=== PATIENT | male | born 1965 | race Caucasian/White ===

== ENCOUNTER → 2024-03-03 | Outpatient (CLI) | payer OTHER ==
[~2024-03-03] MED LIST: DOCU100 PO
[2024-03-03 12:53] LABS: BASOPHILS ABSOLUTE AUTO 0.06 K/mm3 (0.00-0.23); BASOPHILS PERCENT AUTO 1 % (0-2); EOSINOPHILS ABSOLUTE AUTO 0.33 K/mm3 (0.00-0.68); EOSINOPHILS PERCENT AUTO 5 % (0-6); Hematocrit 29.4 % (37.0-53.0); Hemoglobin 9.7 g/dL (13.5-17.5); IMMATURE GRAN ABSOLUTE AUTO 0.03 K/mm3 (0.00-0.10); IMMATURE GRAN PERCENT AUTO 0 % (0-1); LYMPHOCYTES ABSOLUTE AUTO 2.15 K/mm3 (0.84-5.20); LYMPHOCYTES PERCENT AUTO 32 % (21-46); MONOCYTES ABSOLUTE AUTO 0.61 K/mm3 (0.16-1.47); MONOCYTES PERCENT AUTO 9 % (4-13); Mean Corpuscular Volume 88 fL (80-100); Mean Platelet Volume 10.4 fL (9.1-12.4); NEUTROPHILS ABSOLUTE AUTO 3.65 K/mm3 (1.96-9.15); NEUTROPHILS PERCENT AUTO 54 % (41-73); Platelet Count 365 K/mm3 (150-400); RDW Coefficient Variation 13.6 % (11.7-14.2); RDW Standard Deviation 43.7 fL (35.1-46.3); Red Blood Cell Count 3.35 M/mm3 (4.30-5.90); White Blood Cell Count 6.83 K/mm3 (4.00-11.30)
[2024-03-03 13:29] LABS: Albumin, Blood 3.1 g/dL (3.4-5.0); Albumin/Globulin Ratio 0.5 (0.8-1.8); Bilirubin, Total 0.5 mg/dL (0.1-1.0); Bun/Creatinine Ratio 20.1 (12.0-20.0); Calcium, Blood 9.3 mg/dL (8.5-10.1); Creatinine, Blood 1.54 mg/dL (0.60-1.20); Globulin, Blood 5.7 g/dL (2.2-4.0); Total Protein, Blood 8.8 g/dL (6.4-8.2)
== END | disposition home or self-care (01) ==
LOC: LAB 12:32 → LAB SHORT 12:32
PROVIDERS: Obstetrics & Gynecology Gynecologic Oncology
DX: M86.171 Other acute osteomyelitis, right ankle and foot (principal)
CPT/HCPCS: 80053; 85025

== ENCOUNTER 2024-03-04 04:36 | Day surgery (SDC) | payer OTHER | END 2024-03-04 23:00 | disposition home or self-care (01) | LOC: WOUND 04:36 | DX: E11.621 Type 2 diabetes mellitus with foot ulcer (principal); L97.515 Non-pressure chronic ulcer of other part of right foot with muscle involvement without evidence of necrosis; L97.422 Non-pressure chronic ulcer of left heel and midfoot with fat layer exposed; L97.522 Non-pressure chronic ulcer of other part of left foot with fat layer exposed; T81.31XD Disruption of external operation (surgical) wound, not elsewhere classified, subsequent encounter; E11.42 Type 2 diabetes mellitus with diabetic polyneuropathy; Z88.8 Allergy status to other drugs, medicaments and biological substances; Z89.421 Acquired absence of other right toe(s); Y83.8 Other surgical procedures as the cause of abnormal reaction of the patient, or of later complication, without mention of misadventure at the time of the procedure | CPT/HCPCS: G0463 ==

== ENCOUNTER 2024-03-07 08:30 | Day surgery (SDC) | payer OTHER | END 2024-03-07 23:00 | disposition home or self-care (01) | LOC: WOUND 08:30 | DX: E11.621 Type 2 diabetes mellitus with foot ulcer (principal); L97.515 Non-pressure chronic ulcer of other part of right foot with muscle involvement without evidence of necrosis; L97.522 Non-pressure chronic ulcer of other part of left foot with fat layer exposed; L97.412 Non-pressure chronic ulcer of right heel and midfoot with fat layer exposed; E11.42 Type 2 diabetes mellitus with diabetic polyneuropathy ==

== ENCOUNTER 2024-03-10 04:34 | Day surgery (SDC) | payer OTHER ==
[2024-03-11] MEDS ORDERED: DOCU100 PO (04:30)
== END 2024-03-12 23:00 | disposition home or self-care (01) ==
LOC: WOUND 04:34
DX: E11.621 Type 2 diabetes mellitus with foot ulcer (principal); L97.513 Non-pressure chronic ulcer of other part of right foot with necrosis of muscle; L97.522 Non-pressure chronic ulcer of other part of left foot with fat layer exposed; L97.412 Non-pressure chronic ulcer of right heel and midfoot with fat layer exposed; L97.422 Non-pressure chronic ulcer of left heel and midfoot with fat layer exposed; E11.42 Type 2 diabetes mellitus with diabetic polyneuropathy; Z89.421 Acquired absence of other right toe(s); K59.00 Constipation, unspecified
CPT/HCPCS: 51702; 51798; 73620; 74177; 80053; 81001; 85025; 96361-59; 96374-59; 96375-59; 99284-25; J2270; J2405; J7030; Q9967

== ENCOUNTER 2024-03-10 17:15 | Emergency (ER) | payer OTHER ==
[~2024-03-10] VITALS: Ht 172.7 cm; Wt 74.8 kg
[2024-03-10 18:12] LABS: BASOPHILS ABSOLUTE AUTO 0.04 K/mm3 (0.00-0.23); BASOPHILS PERCENT AUTO 0 % (0-2); EOSINOPHILS ABSOLUTE AUTO 0.09 K/mm3 (0.00-0.68); EOSINOPHILS PERCENT AUTO 1 % (0-6); Hematocrit 28.6 % (37.0-53.0); Hemoglobin 9.8 g/dL (13.5-17.5); IMMATURE GRAN ABSOLUTE AUTO 0.04 K/mm3 (0.00-0.10); IMMATURE GRAN PERCENT AUTO 0 % (0-1); LYMPHOCYTES ABSOLUTE AUTO 2.14 K/mm3 (0.84-5.20); LYMPHOCYTES PERCENT AUTO 20 % (21-46); MONOCYTES ABSOLUTE AUTO 0.65 K/mm3 (0.16-1.47); MONOCYTES PERCENT AUTO 6 % (4-13); Mean Corpuscular HGB 29.7 pg (26.0-34.0); Mean Corpuscular HGB Conc 34.3 g/dL (31.5-36.5); Mean Corpuscular Volume 87 fL (80-100); Mean Platelet Volume 10.4 fL (9.1-12.4); NEUTROPHILS ABSOLUTE AUTO 7.51 K/mm3 (1.96-9.15); NEUTROPHILS PERCENT AUTO 72 % (41-73); Platelet Count 372 K/mm3 (150-400); RDW Coefficient Variation 13.7 % (11.7-14.2); RDW Standard Deviation 43.2 fL (35.1-46.3); White Blood Cell Count 10.47 K/mm3 (4.00-11.30)
[2024-03-10 18:23] LABS: Albumin, Blood 3.4 g/dL (3.4-5.0); Albumin/Globulin Ratio 0.6 (0.8-1.8); Bilirubin, Total 0.5 mg/dL (0.1-1.0); Bun/Creatinine Ratio 18.6 (12.0-20.0); Calcium, Blood 9.6 mg/dL (8.5-10.1); Creatinine, Blood 1.56 mg/dL (0.60-1.20); Globulin, Blood 5.7 g/dL (2.2-4.0); Potassium, Blood 4.1 mmol/L (3.5-5.5); Total Protein, Blood 9.1 g/dL (6.4-8.2)
[2024-03-10] MEDS ORDERED: NS 1,000 ML IV SCH (23:05)
[2024-03-10] MEDS ORDERED: Morphine Sulfate 4 MG/1 ML Injection IV ONE (23:05)
[2024-03-10] MEDS ORDERED: Ondansetron HCl 2 MG / ML 2ML Vial IV ONE (23:05)
[2024-03-11] MEDS ORDERED: NS 1,000 ML IV SCH (03:20)
[2024-03-11 04:07] LABS: Source, Urine Clean Catch
[2024-03-11 04:12] LABS: Bilirubin, Urine Neg (Neg); Blood, Urine Neg (Neg); Glucose Qualitative, Urine Neg (Neg); Ketones, Urine Neg (Neg); Leukocyte Esterase, Urine Neg (Neg); Nitrite, Urine Neg (Neg); Protein, Urine 2+ (Neg); Urobilinogen, Urine NORM (Normal); pH, Urine 6.5 (5.0-8.0)
[2024-03-11 04:15] LABS: Appearance, Urine Clear (Clear); Color, Urine Yellow (P-Yellow)
[2024-03-11 04:26] LABS: Bacteria Not Seen /hpf; Red Blood Cells, Urine Not Seen /hpf (0-2); Squamous Epithelial Cells Rare /hpf (Few); White Blood Cells, Urine 0-2 /hpf (0-5)
[2024-03-11] MEDS ORDERED: DOCU100 PO (04:30)
== END 2024-03-11 05:13 | disposition home or self-care (01) ==
LOC: ER 17:15
PROVIDERS: Physician Assistant
DX: K59.00 Constipation, unspecified (principal)
CPT/HCPCS: 51702; 51798; 73620; 74177; 80053; 81001; 85025; 96361-59; 96374-59; 96375-59; 99284-25; J2270; J2405; J7030; Q9967

== ENCOUNTER 2024-03-17 03:11 | Day surgery (SDC) | payer OTHER | END 2024-03-17 23:00 | disposition home or self-care (01) | LOC: WOUND 03:11 | DX: E11.621 Type 2 diabetes mellitus with foot ulcer (principal); L97.413 Non-pressure chronic ulcer of right heel and midfoot with necrosis of muscle; L97.422 Non-pressure chronic ulcer of left heel and midfoot with fat layer exposed; L97.522 Non-pressure chronic ulcer of other part of left foot with fat layer exposed; L97.412 Non-pressure chronic ulcer of right heel and midfoot with fat layer exposed; L97.512 Non-pressure chronic ulcer of other part of right foot with fat layer exposed; E11.42 Type 2 diabetes mellitus with diabetic polyneuropathy; Z89.421 Acquired absence of other right toe(s) | CPT/HCPCS: G0463 ==

== ENCOUNTER 2024-03-24 03:09 | Day surgery (SDC) | payer OTHER ==
[2024-03-24] MEDS ORDERED: Lidocaine HCl 4% Cream 5 GM ONE (08:56)
[2024-03-24] MEDS ORDERED: SULFAMETHOXAZO1 EAC1 PO (11:53)
[2024-03-24] MEDS ORDERED: AMOX-CLAV 875-1 EAC5 PO (11:53)
[2024-03-24] MEDS ORDERED: TRAM50 PO (11:53)
[2024-03-24] MEDS ORDERED: Levemir FlexPen 100 (11:54)
[2024-03-24] MEDS ORDERED: SUBOXONE 2 MG-1 EAC1 SL (11:55)
[2024-03-24] MEDS ORDERED: ONDA4ODT MM (11:57)
[2024-03-24] MEDS ORDERED: AMLO5 PO (11:57)
[2024-03-24] MEDS ORDERED: AMOCLA875 PO (13:12)
[2024-03-24] MEDS ORDERED: INSDET100 SC (18:40)
[2024-03-26] MEDS ORDERED: TAMS.4ER PO (15:44)
[2024-03-26] MEDS ORDERED: MIRALAX17 GM PO (15:44)
[2024-03-26] MEDS ORDERED: VISBIOME 112.51 EACH PO (15:46)
== END 2024-03-24 23:00 | disposition home or self-care (01) ==
LOC: WOUND 03:09
DX: E11.621 Type 2 diabetes mellitus with foot ulcer (principal); E11.42 Type 2 diabetes mellitus with diabetic polyneuropathy; L97.515 Non-pressure chronic ulcer of other part of right foot with muscle involvement without evidence of necrosis; L97.422 Non-pressure chronic ulcer of left heel and midfoot with fat layer exposed; L97.522 Non-pressure chronic ulcer of other part of left foot with fat layer exposed; I10 Essential (primary) hypertension; T81.31XD Disruption of external operation (surgical) wound, not elsewhere classified, subsequent encounter; Z89.421 Acquired absence of other right toe(s); Z45.2 Encounter for adjustment and management of vascular access device; Z88.6 Allergy status to analgesic agent; Z79.899 Other long term (current) drug therapy; Z89.431 Acquired absence of right foot
CPT/HCPCS: 36592; 80053; 85025; 86140; A6196; A9270; G0463

== ENCOUNTER 2024-03-24 08:36 | Day surgery (SDC) | payer OTHER ==
[2024-03-24 10:34] VITALS: BP 128/82
[2024-03-24 11:30] LABS: BASOPHILS ABSOLUTE AUTO 0.07 K/mm3 (0.00-0.23); BASOPHILS PERCENT AUTO 1 % (0-2); EOSINOPHILS ABSOLUTE AUTO 0.16 K/mm3 (0.00-0.68); EOSINOPHILS PERCENT AUTO 2 % (0-6); Hematocrit 30.7 % (37.0-53.0); Hemoglobin 10.5 g/dL (13.5-17.5); IMMATURE GRAN ABSOLUTE AUTO 0.03 K/mm3 (0.00-0.10); IMMATURE GRAN PERCENT AUTO 0 % (0-1); LYMPHOCYTES ABSOLUTE AUTO 2.35 K/mm3 (0.84-5.20); LYMPHOCYTES PERCENT AUTO 25 % (21-46); MONOCYTES ABSOLUTE AUTO 0.54 K/mm3 (0.16-1.47); MONOCYTES PERCENT AUTO 6 % (4-13); Mean Corpuscular HGB 29.8 pg (26.0-34.0); Mean Corpuscular HGB Conc 34.2 g/dL (31.5-36.5); Mean Corpuscular Volume 87 fL (80-100); Mean Platelet Volume 10.8 fL (9.1-12.4); NEUTROPHILS ABSOLUTE AUTO 6.39 K/mm3 (1.96-9.15); NEUTROPHILS PERCENT AUTO 67 % (41-73); Platelet Count 323 K/mm3 (150-400); RDW Coefficient Variation 13.5 % (11.7-14.2); RDW Standard Deviation 42.9 fL (35.1-46.3); Red Blood Cell Count 3.52 M/mm3 (4.30-5.90); White Blood Cell Count 9.54 K/mm3 (4.00-11.30)
[2024-03-24] MEDS ORDERED: TRAM50 PO (11:53)
[2024-03-24] MEDS ORDERED: SULFAMETHOXAZO1 EAC1 PO (11:53)
[2024-03-24] MEDS ORDERED: AMOX-CLAV 875-1 EAC5 PO (11:53)
[2024-03-24] MEDS ORDERED: Levemir FlexPen 100 (11:54)
[2024-03-24] MEDS ORDERED: SUBOXONE 2 MG-1 EAC1 SL (11:55)
[2024-03-24 11:56] LABS: Albumin, Blood 3.9 g/dL (3.4-5.0); Albumin/Globulin Ratio 0.7 (0.8-1.8); Bilirubin, Total 0.5 mg/dL (0.1-1.0); Bun/Creatinine Ratio 18.8 (12.0-20.0); C-REACTIVE PROTEIN, EXT RANGE 0.494 mg/dL (0.000-0.300); Calcium, Blood 10.1 mg/dL (8.5-10.1); Creatinine, Blood 2.39 mg/dL (0.60-1.20); Globulin, Blood 5.8 g/dL (2.2-4.0); Potassium, Blood 5.6 mmol/L (3.5-5.5); Total Protein, Blood 9.7 g/dL (6.4-8.2)
[2024-03-24] MEDS ORDERED: ONDA4ODT MM (11:57)
[2024-03-24] MEDS ORDERED: AMLO5 PO (11:57)
--- NOTE | 2024-03-24 12:11 | NUR ---
Lab results drawn this morning faxed to Dr. Marv Arguelles's office at [facility].
[2024-03-24] MEDS ORDERED: AMOCLA875 PO (13:12)
[2024-03-24] MEDS ORDERED: INSDET100 SC (18:40)
== END 2024-03-24 10:50 | disposition home or self-care (01) ==
LOC: ATC 08:36
DX: Z45.2 Encounter for adjustment and management of vascular access device (principal); I10 Essential (primary) hypertension; E11.621 Type 2 diabetes mellitus with foot ulcer; L97.529 Non-pressure chronic ulcer of other part of left foot with unspecified severity; Z88.6 Allergy status to analgesic agent; Z79.899 Other long term (current) drug therapy; Z89.431 Acquired absence of right foot
CPT/HCPCS: 36592; 80053; 85025; 86140

== ENCOUNTER 2024-03-24 11:46 | Inpatient (IN) | payer OTHER ==
[~2024-03-24] VITALS: Ht 172.7 cm; Wt 71.2 kg
[2024-03-24] MEDS ORDERED: AMOX-CLAV 875-1 EAC5 PO (11:53)
[2024-03-24] MEDS ORDERED: TRAM50 PO ×2 (11:53)
[2024-03-24] MEDS ORDERED: SULFAMETHOXAZO1 EAC1 PO ×2 (11:53)
[2024-03-24] MEDS ORDERED: Levemir FlexPen 100 (11:54)
[2024-03-24] MEDS ORDERED: SUBOXONE 2 MG-1 EAC1 SL ×2 (11:55)
[2024-03-24] MEDS ORDERED: AMLO5 PO (11:57)
[2024-03-24] MEDS ORDERED: ONDA4ODT MM (11:57)
[2024-03-24] MEDS ORDERED: AMOCLA875 PO (13:12)
[2024-03-24 14:09] LABS: BASOPHILS ABSOLUTE AUTO 0.06 K/mm3 (0.00-0.23); BASOPHILS PERCENT AUTO 1 % (0-2); EOSINOPHILS ABSOLUTE AUTO 0.07 K/mm3 (0.00-0.68); EOSINOPHILS PERCENT AUTO 1 % (0-6); Hematocrit 31.5 % (37.0-53.0); Hemoglobin 10.7 g/dL (13.5-17.5); IMMATURE GRAN ABSOLUTE AUTO 0.07 K/mm3 (0.00-0.10); IMMATURE GRAN PERCENT AUTO 1 % (0-1); LYMPHOCYTES ABSOLUTE AUTO 2.31 K/mm3 (0.84-5.20); LYMPHOCYTES PERCENT AUTO 28 % (21-46); MONOCYTES PERCENT AUTO 5 % (4-13); Mean Corpuscular HGB 29.6 pg (26.0-34.0); Mean Corpuscular Volume 87 fL (80-100); Mean Platelet Volume 10.3 fL (9.1-12.4); NEUTROPHILS ABSOLUTE AUTO 5.41 K/mm3 (1.96-9.15); NEUTROPHILS PERCENT AUTO 65 % (41-73); Platelet Count 281 K/mm3 (150-400); RDW Coefficient Variation 13.5 % (11.7-14.2); RDW Standard Deviation 43.3 fL (35.1-46.3); Red Blood Cell Count 3.62 M/mm3 (4.30-5.90); White Blood Cell Count 8.32 K/mm3 (4.00-11.30)
[2024-03-24 14:21] LABS: Source, Urine Foley catheter
[2024-03-24 14:23] LABS: Appearance, Urine Clear (Clear); Bilirubin, Urine Neg (Neg); Blood, Urine 1+ (Neg); Color, Urine Yellow (P-Yellow); Glucose Qualitative, Urine Neg (Neg); Ketones, Urine Neg (Neg); Leukocyte Esterase, Urine Neg (Neg); Nitrite, Urine Neg (Neg); Protein, Urine 1+ (Neg); Urobilinogen, Urine NORM (Normal)
[2024-03-24 14:37] LABS: Bacteria Few /hpf; Mucus Light (0-Heavy); Red Blood Cells, Urine 0-2 /hpf (0-2); Squamous Epithelial Cells Not Seen /hpf (Few); Transitional Epithelial Cells Rare /hpf (0-Rare); White Blood Cells, Urine 0-2 /hpf (0-5)
[2024-03-24 14:40] LABS: Albumin, Blood 3.7 g/dL (3.4-5.0); Albumin/Globulin Ratio 0.6 (0.8-1.8); Bilirubin, Total 0.5 mg/dL (0.1-1.0); Calcium, Blood 9.7 mg/dL (8.5-10.1); Creatinine, Blood 2.39 mg/dL (0.60-1.20); Globulin, Blood 5.7 g/dL (2.2-4.0); Potassium, Blood 6.1 mmol/L (3.5-5.5); Total Protein, Blood 9.4 g/dL (6.4-8.2)
[2024-03-24] MEDS ORDERED: Dextrose 50% 50 ML Syringe IV ONE (15:10)
[2024-03-24] MEDS ORDERED: Albuterol 2.5 MG/3 ML VIAL INH SCH (15:10)
[2024-03-24] MEDS ORDERED: Insulin Regular 100 Unit/ML 1ML Dose IV ONE (15:10)
[2024-03-24] MEDS ORDERED: Calcium Gluconate 10% 100 MG/ML INJ IV ONE (15:10)
[2024-03-24] MEDS ORDERED: CALCIUM GLUC IN NACL, ISO-OSM 50 ML IV ONE (15:15)
[2024-03-24] MEDS ORDERED: Dextrose 50% 50 ML Vial IV ONE (15:15)
[2024-03-24] MEDS ORDERED: NS 1,000 ML IV SCH ×2 (15:50→16:50)
[2024-03-24] MEDS ORDERED: Lactulose 20 GM/30 ML UDC PO ONE (15:55)
[2024-03-24] MEDS ORDERED: FLU VACC TS2024-25(6MOS UP)/PF 45 MCG/0.5 ML SYRINGE IM PRN (16:50)
[2024-03-24] MEDS ORDERED: Ondansetron HCl 2 MG / ML 2ML Vial IV PRN (16:50)
[2024-03-24] MEDS ORDERED: Sodium Zirconium Cyclosilicate 10 GM Packet PO SCH (17:00)
[2024-03-24] MEDS ORDERED: Bisacodyl 10 MG Supp PR STA (18:12)
[2024-03-24] MEDS ORDERED: INSDET100 SC ×2 (18:40)
[2024-03-24 18:53] VITALS: BP 147/79
--- NOTE | 2024-03-24 18:54 | NUR ---
ARRIVAL TO PCU patient arrived to pcu at 1840 and transferd to pcu bed with a stand and pivot which patient tolerated well. patient is medical no tele. patient vital signs stable. patient med rec is complete. request of records faxed to [facility] [place]. per report from er nurse katarina that patient had was removed at 1400 in the ER and patient has not voided since. patient states he does not have to pee but "can feel that it is getting there". plan to bladder scan and then reassess.
[2024-03-24] MEDS ORDERED: Tamsulosin HCl 0.4 MG Cap PO SCH (19:00)
[2024-03-24] MEDS ORDERED: TraMADol HCl 50 MG Tab PO PRN (20:20)
[2024-03-24 20:22] VITALS: BP 135/72
[2024-03-24] MEDS ORDERED: Buprenorphine HCL/Naloxone HCL 2-0.5MG 1 EA SL SCH (21:00)
[2024-03-24] MEDS ORDERED: Insulin Human Lispro 100 Units/ML 3ML Syringe SC SCH (21:00)
[2024-03-24] MEDS ORDERED: Trimethoprim/Sulfamethoxazole DS Tab PO SCH (21:00)
[2024-03-24] MEDS ORDERED: Polyethylene Glycol 3350 17 gm PO SCH (21:00)
[2024-03-25 04:18] VITALS: BP 151/71
--- NOTE | 2024-03-25 04:32 | NUR ---
SHIFT SUMMARY ASSUMED CARE OF PT AT 1900. PT A&O4, ABLE TO ANSWER ADMISSION ASSESSMENT QUESTIONS BUT BECAME IRRITABLE AFTER A WHILE AND DECIDED NOT TO ANSWER SOME. I ATTEMPTED TO UNWRAP THE DRESSING TO HIS BLE FOR ADMISSION PICTURES BUT PT REFUSED. PT STATED HE JUST HAD DRESSING CHANGES THIS AM AND DID NOT WANT ME TO REMOVE THEM. PT ALSO REFUSED ASSISTANCE TO THE RR, AFTER OBSERVING THE PT ALMOST FALL FROM THE BED REACHING FOR HIS WALKER; I PROVIDED SAFETY EDUCATION TO PT. PT TOLD ME HE NEEDED PRIVACY AND WANTED THE DOOR CLOSED TO THE RR, I CONTINUED TO EDUCATE THE PT ON SAFETY FROM FALLS BUT PT INSISTED ON HAVING THE DOOR CLOSED. NOTIFIED CARDROOM ATTENDANT OF THE MATTER AND RN SPOKE TO PT. DURING MED PASS, PT HAD LOTS OF QUESTIONS REGARDING THE MEDCATIONS MD ORDERED AND STATED HE NEEDED HIS HOME MEDS STARTED. REVIEWED HOME MEDS WITH PT AND CONTACTED OVERNIGHT RESIDENT TO RESTART. EDUCATED PT ON MEDS ORDERED BY PREVIOUS PROVIDER AND PT REFUSED SUPPOSITORY AND LOKELMA. PT STATED HE "FEELS HIS STOMACH MOVING AROUND SO MUCH ALREADY" AND WAS "TOO FULL" TO TAKE ANYTHING ELSE. NO BM WAS PASSED OVERNIGHT. PT VSS AND REMAINED ON RA. PT DENIED SOB, CP/PRESSURE OVERNIGHT. BED IN LOWEST POSITION, BSC CLOSE TO PT AND CALL LIGHT WITHIN REACH.
[2024-03-25 04:41] LABS: BASOPHILS ABSOLUTE AUTO 0.04 K/mm3 (0.00-0.23); BASOPHILS PERCENT AUTO 1 % (0-2); EOSINOPHILS ABSOLUTE AUTO 0.25 K/mm3 (0.00-0.68); EOSINOPHILS PERCENT AUTO 4 % (0-6); Hematocrit 25.7 % (37.0-53.0); Hemoglobin 8.7 g/dL (13.5-17.5); IMMATURE GRAN ABSOLUTE AUTO 0.02 K/mm3 (0.00-0.10); IMMATURE GRAN PERCENT AUTO 0 % (0-1); LYMPHOCYTES ABSOLUTE AUTO 2.37 K/mm3 (0.84-5.20); LYMPHOCYTES PERCENT AUTO 41 % (21-46); MONOCYTES ABSOLUTE AUTO 0.48 K/mm3 (0.16-1.47); MONOCYTES PERCENT AUTO 8 % (4-13); Mean Corpuscular HGB 29.6 pg (26.0-34.0); Mean Corpuscular HGB Conc 33.9 g/dL (31.5-36.5); Mean Corpuscular Volume 87 fL (80-100); Mean Platelet Volume 10.2 fL (9.1-12.4); NEUTROPHILS ABSOLUTE AUTO 2.61 K/mm3 (1.96-9.15); NEUTROPHILS PERCENT AUTO 45 % (41-73); Platelet Count 218 K/mm3 (150-400); RDW Coefficient Variation 13.6 % (11.7-14.2); RDW Standard Deviation 43.6 fL (35.1-46.3); Red Blood Cell Count 2.94 M/mm3 (4.30-5.90); White Blood Cell Count 5.77 K/mm3 (4.00-11.30)
[2024-03-25 04:57] LABS: Bun/Creatinine Ratio 18.5 (12.0-20.0); Calcium, Blood 9.2 mg/dL (8.5-10.1); Creatinine, Blood 1.84 mg/dL (0.60-1.20)
[2024-03-25] MEDS ORDERED: Insulin Glargine-Yfgn 100 Unit/mL 3 ML SYR SC SCH (09:00)
[2024-03-25] MEDS ORDERED: Enoxaparin 40 MG/0.4 ML SYR SC SCH (09:00)
[2024-03-25] MEDS ORDERED: Lactobacil 2-S.Thermo-Bifido 1 1 Cap PO SCH (14:05)
--- NOTE | 2024-03-25 14:56 | NUR ---
Pt has been sleeping. Scheduled meds deferred until he awakens or it is time for next set of vital signs.
[2024-03-25 16:10] VITALS: BP 133/74
--- NOTE | 2024-03-25 17:56 | NUR ---
Call to Dr. Durán regarding pt's request to resume home Tramadol for chronic leg pain/neuropathy.
[2024-03-25] MEDS ORDERED: TraMADol HCl 50 MG Tab PO PRN ×2 (18:05→19:10)
[2024-03-25 21:38] VITALS: BP 155/87
[2024-03-26] MEDS ORDERED: Bisacodyl 10 MG Supp PR ONE (01:15)
[2024-03-26 03:35] VITALS: BP 158/84
--- NOTE | 2024-03-26 05:26 | NUR ---
SHIFT SUMMARY ASSUMED CARE OF PT AT 1900. PT A&O4, COOPERATIVE IN CARE OVERNIGHT AND ABLE TO EXPRESS NEEDS. PT DENIES CP/PRESSURE AND SOB. PT C/O TRAMADOL DOSAGE ORDER, NOTIFIED RESIDENT MD; NO ORDERS GIVEN. PT DID REQUEST THE SUPPOSITORY HE REFUSED YESTERDAY D/T HIM BEING UNSUCCESSFUL HAVING A BM; NOTIFIED MD; ORDERS OBTAINED; MED GIVEN. VSS AND PT REMAINED ON RA. EDUCATED PT ON CALLING FOR ASSISTANCE TO BSC BUT PT NEVER CALLED. PT'S BED IN LOWEST POSITION AND CALL LIGHT WITHIN REACH. STILL AWAITING BM; PT REPORTS PASSING GAS.
[2024-03-26 07:44] VITALS: BP 139/82
[2024-03-26 10:08] LABS: Anion Gap 10 mmol/L (3-11); Blood Urea Nitrogen 21 mg/dL (8-24); Bun/Creatinine Ratio 13.1 (12.0-20.0); CO2, Blood 25 mmol/L (21-32); Calcium, Blood 8.7 mg/dL (8.5-10.1); Chloride, Blood 107 mmol/L (98-108); Glomerular Filtration Rate 49 (60-); Glucose, Blood 203 mg/dL (70-99); Phosphorus, Blood 3.4 mg/dL (2.5-4.9); Sodium, Blood 137 mmol/L (136-145)
--- NOTE | 2024-03-26 12:02 | NUR ---
MD AT BEDSIDE: MD R[place] AT BEDSIDE NOT ASSESS PATIENT. MD STATED PATIENT COULD DISCHARGE TODAY AND PATIENT AWARE. PATIENT STATED DAUGHTER WON'T BE ABLE TO SAILOR UNTIL OFF WORK AROUND 8:30PM.
[2024-03-26 12:35] VITALS: BP 154/87
[2024-03-26] MEDS ORDERED: MIRALAX17 GM PO ×2 (15:44)
[2024-03-26] MEDS ORDERED: TAMS.4ER PO ×2 (15:44)
[2024-03-26] MEDS ORDERED: VISBIOME 112.51 EACH PO ×2 (15:46)
[2024-03-26 16:57] VITALS: BP 159/88
--- NOTE | 2024-03-26 18:22 | NUR ---
SHIFT SUMMARY: PATIENT IS ALERT AND ORIENTED X4 AND ACTIVE IN HIS CARE. IS SATTING >92% ON ROOM AIR. PATIENT IS SET TO DISCHARGE ONCE DAUGHTER GETS OFF WORK AND IS ABLE TO PICK HIM UP AT 20:30. THIS RN WENT OVER DISCHARGE PAPERWORK AND SENT OFF NEW MEDICATIONS TO [facility]. PATIENT AWARE OF THE NEW MEDICATIONS AND TO PICK THEM UP IN THE AM. PATIENT WAS ABLE TO HAVE A BOWEL MOVEMENT TODAY AND HIS WOUNDS WERE RE-WRAPPED PER WOUND CLINIC INSTRUCTIONS. WILL CONTINUE TO MONITOR UNTIL SHIFT CHANGE AND NIGHT RN ASSUMES CARE.
== END 2024-03-26 20:32 | disposition home or self-care (01) | DRG 683 ==
LOC: ER 11:46 → PCU 11:47 → ERHOLD 11:47 → PCU 18:36
PROVIDERS: Student in an Organized Health Care Education/Training Program; ADMIT Internal Medicine
DX: N17.0 Acute kidney failure with tubular necrosis (principal); E87.1 Hypo-osmolality and hyponatremia; N13.8 Other obstructive and reflux uropathy; T87.43 Infection of amputation stump, right lower extremity; N10 Acute pyelonephritis; E87.6 Hypokalemia; N40.1 Benign prostatic hyperplasia with lower urinary tract symptoms; K59.00 Constipation, unspecified; G89.4 Chronic pain syndrome; L97.529 Non-pressure chronic ulcer of other part of left foot with unspecified severity; E11.621 Type 2 diabetes mellitus with foot ulcer; R33.8 Other retention of urine; I10 Essential (primary) hypertension; Y83.5 Amputation of limb(s) as the cause of abnormal reaction of the patient, or of later complication, without mention of misadventure at the time of the procedure; Z98.1 Arthrodesis status; Z88.6 Allergy status to analgesic agent; Z89.422 Acquired absence of other left toe(s); Z89.421 Acquired absence of other right toe(s); Z89.411 Acquired absence of right great toe; Z45.2 Encounter for adjustment and management of vascular access device; Z79.899 Other long term (current) drug therapy; Z89.431 Acquired absence of right foot
CPT/HCPCS: 36415; 36592; 74018; 74177; 80048; 80053; 80069; 81001; 82947; 84132; 85025; 86140; 87086; 93005; 93010; 94644; 94664; 96361; 96374-59; 96375; 99285-25; A6196; A9270; G0463; J0572; J0612; J1650; J1815; J2405; J7030; J7799; Q9967

== ENCOUNTER 2024-03-31 04:22 | Day surgery (SDC) | payer OTHER ==
[~2024-03-31 04:22] MED LIST changes: +AMLO5 PO; +AMOCLA875 PO; +AMOX-CLAV 875-1 EAC5 PO; +INSDET100 SC; +Levemir FlexPen 100; +MIRALAX17 GM PO; +ONDA4ODT MM; +SUBOXONE 2 MG-1 EAC1 SL; +SULFAMETHOXAZO1 EAC1 PO; +TAMS.4ER PO; +TRAM50 PO; +VISBIOME 112.51 EACH PO
[2024-03-31] MEDS ORDERED: Silver Nitr/Potassium Nitrate 1 EA APPL ONE (09:03)
== END 2024-03-31 23:00 | disposition home or self-care (01) ==
LOC: WOUND 04:22
DX: E11.621 Type 2 diabetes mellitus with foot ulcer (principal); L97.515 Non-pressure chronic ulcer of other part of right foot with muscle involvement without evidence of necrosis; L97.422 Non-pressure chronic ulcer of left heel and midfoot with fat layer exposed; L97.522 Non-pressure chronic ulcer of other part of left foot with fat layer exposed; T81.31XA Disruption of external operation (surgical) wound, not elsewhere classified, initial encounter; E11.42 Type 2 diabetes mellitus with diabetic polyneuropathy; Z89.421 Acquired absence of other right toe(s)
CPT/HCPCS: A9270

== ENCOUNTER 2024-04-07 04:00 | Day surgery (SDC) | payer OTHER ==
[2024-04-07] MEDS ORDERED: Lidocaine HCl 4% Cream 5 GM ONE (08:35)
[2024-04-07] MEDS ORDERED: Silver Nitr/Potassium Nitrate 1 EA APPL ONE (08:53)
== END 2024-04-07 23:00 | disposition home or self-care (01) ==
LOC: WOUND 04:00
DX: E11.621 Type 2 diabetes mellitus with foot ulcer (principal); L97.415 Non-pressure chronic ulcer of right heel and midfoot with muscle involvement without evidence of necrosis; L97.422 Non-pressure chronic ulcer of left heel and midfoot with fat layer exposed; T81.31XA Disruption of external operation (surgical) wound, not elsewhere classified, initial encounter; E11.42 Type 2 diabetes mellitus with diabetic polyneuropathy; Z89.421 Acquired absence of other right toe(s); Y83.8 Other surgical procedures as the cause of abnormal reaction of the patient, or of later complication, without mention of misadventure at the time of the procedure
CPT/HCPCS: A9270

== ENCOUNTER 2024-04-14 06:12 | Day surgery (SDC) | payer OTHER ==
[2024-04-14] MEDS ORDERED: Lidocaine HCl 4% Cream 5 GM ONE (08:22)
[2024-04-14] MEDS ORDERED: Silver Nitr/Potassium Nitrate 1 EA APPL ONE (08:41)
== END 2024-04-14 23:00 | disposition home or self-care (01) ==
LOC: WOUND 06:12
DX: E11.621 Type 2 diabetes mellitus with foot ulcer (principal); L97.412 Non-pressure chronic ulcer of right heel and midfoot with fat layer exposed; L97.422 Non-pressure chronic ulcer of left heel and midfoot with fat layer exposed; T81.31XA Disruption of external operation (surgical) wound, not elsewhere classified, initial encounter; E11.69 Type 2 diabetes mellitus with other specified complication; M86.8X7 Other osteomyelitis, ankle and foot; E11.42 Type 2 diabetes mellitus with diabetic polyneuropathy; Z89.421 Acquired absence of other right toe(s); Y83.8 Other surgical procedures as the cause of abnormal reaction of the patient, or of later complication, without mention of misadventure at the time of the procedure
CPT/HCPCS: A6196; A9270

== ENCOUNTER 2024-04-22 01:27 | Day surgery (SDC) | payer OTHER ==
[2024-04-22] MEDS ORDERED: Lidocaine HCl 4% Cream 5 GM ONE (08:01)
== END 2024-04-22 23:00 | disposition home or self-care (01) ==
LOC: WOUND 01:27
DX: E11.621 Type 2 diabetes mellitus with foot ulcer (principal); L97.412 Non-pressure chronic ulcer of right heel and midfoot with fat layer exposed; L97.512 Non-pressure chronic ulcer of other part of right foot with fat layer exposed; L97.422 Non-pressure chronic ulcer of left heel and midfoot with fat layer exposed; T81.31XA Disruption of external operation (surgical) wound, not elsewhere classified, initial encounter; E11.42 Type 2 diabetes mellitus with diabetic polyneuropathy; Z89.421 Acquired absence of other right toe(s)
CPT/HCPCS: A6196; A9270

== ENCOUNTER 2024-04-29 09:16 | Day surgery (SDC) | payer OTHER | END 2024-04-29 23:00 | disposition home or self-care (01) | LOC: WOUND 09:16 | DX: E11.621 Type 2 diabetes mellitus with foot ulcer (principal); L97.422 Non-pressure chronic ulcer of left heel and midfoot with fat layer exposed; L97.412 Non-pressure chronic ulcer of right heel and midfoot with fat layer exposed; T81.31XD Disruption of external operation (surgical) wound, not elsewhere classified, subsequent encounter; Y83.8 Other surgical procedures as the cause of abnormal reaction of the patient, or of later complication, without mention of misadventure at the time of the procedure; E11.42 Type 2 diabetes mellitus with diabetic polyneuropathy; Z89.421 Acquired absence of other right toe(s) | CPT/HCPCS: A6196 ==

== ENCOUNTER 2024-05-13 00:25 | Day surgery (SDC) | payer OTHER ==
[2024-05-13] MEDS ORDERED: Lidocaine HCl 4% Cream 5 GM ONE (08:09)
== END 2024-05-13 23:00 | disposition home or self-care (01) ==
LOC: WOUND 00:25
DX: E11.621 Type 2 diabetes mellitus with foot ulcer (principal); L97.412 Non-pressure chronic ulcer of right heel and midfoot with fat layer exposed; L97.422 Non-pressure chronic ulcer of left heel and midfoot with fat layer exposed; T81.31XA Disruption of external operation (surgical) wound, not elsewhere classified, initial encounter; E11.42 Type 2 diabetes mellitus with diabetic polyneuropathy; Z89.421 Acquired absence of other right toe(s)
CPT/HCPCS: A9270

== ENCOUNTER 2024-05-20 00:33 | Day surgery (SDC) | payer OTHER | END 2024-05-20 23:00 | disposition home or self-care (01) | LOC: WOUND 00:33 | DX: E11.621 Type 2 diabetes mellitus with foot ulcer (principal); L97.412 Non-pressure chronic ulcer of right heel and midfoot with fat layer exposed; L97.422 Non-pressure chronic ulcer of left heel and midfoot with fat layer exposed; E11.42 Type 2 diabetes mellitus with diabetic polyneuropathy; Z89.421 Acquired absence of other right toe(s) | CPT/HCPCS: G0463 ==

== ENCOUNTER 2024-05-27 03:29 | Day surgery (SDC) | payer OTHER | END 2024-05-27 23:10 | disposition home or self-care (01) | LOC: WOUND 03:29 | DX: E11.621 Type 2 diabetes mellitus with foot ulcer (principal); L97.412 Non-pressure chronic ulcer of right heel and midfoot with fat layer exposed; E11.42 Type 2 diabetes mellitus with diabetic polyneuropathy; Z89.421 Acquired absence of other right toe(s) | CPT/HCPCS: G0463 ==

== ENCOUNTER 2024-06-03 00:38 | Day surgery (SDC) | payer OTHER | END 2024-06-03 23:04 | disposition home or self-care (01) | LOC: WOUND 00:38 | DX: E11.621 Type 2 diabetes mellitus with foot ulcer (principal); L97.412 Non-pressure chronic ulcer of right heel and midfoot with fat layer exposed; E11.42 Type 2 diabetes mellitus with diabetic polyneuropathy; Z89.421 Acquired absence of other right toe(s) | CPT/HCPCS: G0463 ==

== ENCOUNTER 2024-06-10 02:56 | Day surgery (SDC) | payer OTHER | END 2024-06-10 22:58 | disposition home or self-care (01) | LOC: WOUND 02:56 | DX: Z09 Encounter for follow-up examination after completed treatment for conditions other than malignant neoplasm (principal); Z87.828 Personal history of other (healed) physical injury and trauma; Z89.421 Acquired absence of other right toe(s); E11.40 Type 2 diabetes mellitus with diabetic neuropathy, unspecified | CPT/HCPCS: G0463 ==

== ENCOUNTER 2024-07-02 02:12 | Day surgery (SDC) | payer OTHER | END 2024-07-02 23:00 | disposition home or self-care (01) | LOC: WOUND 02:12 | DX: E11.621 Type 2 diabetes mellitus with foot ulcer (principal); L97.422 Non-pressure chronic ulcer of left heel and midfoot with fat layer exposed; E11.42 Type 2 diabetes mellitus with diabetic polyneuropathy; Z89.421 Acquired absence of other right toe(s) | CPT/HCPCS: G0463 ==

== ENCOUNTER → 2024-07-08 | Day surgery (SDC) | payer OTHER ==
[~2024-07-08] MED LIST changes: +Lidocaine HCl 4% Cream 5 GM ONE
== END ==
LOC: WOUND 04:35
DX: E11.621 Type 2 diabetes mellitus with foot ulcer (principal); L97.422 Non-pressure chronic ulcer of left heel and midfoot with fat layer exposed; L97.512 Non-pressure chronic ulcer of other part of right foot with fat layer exposed; E11.42 Type 2 diabetes mellitus with diabetic polyneuropathy; Z89.421 Acquired absence of other right toe(s)
CPT/HCPCS: A9270

== ENCOUNTER → 2024-07-15 | Day surgery (SDC) | payer OTHER ==
[~2024-07-15] MED LIST changes: -Lidocaine HCl 4% Cream 5 GM ONE
== END ==
LOC: WOUND 03:32
DX: E11.621 Type 2 diabetes mellitus with foot ulcer (principal); L97.422 Non-pressure chronic ulcer of left heel and midfoot with fat layer exposed; L97.412 Non-pressure chronic ulcer of right heel and midfoot with fat layer exposed; E11.42 Type 2 diabetes mellitus with diabetic polyneuropathy
CPT/HCPCS: G0463

== ENCOUNTER 2024-07-29 02:04 | Day surgery (SDC) | payer OTHER ==
[2024-07-29] MEDS ORDERED: Lidocaine HCl 4% Cream 5 GM ONE (08:08)
== END 2024-07-29 23:41 | disposition home or self-care (01) ==
LOC: WOUND 02:04
DX: E11.621 Type 2 diabetes mellitus with foot ulcer (principal); L97.422 Non-pressure chronic ulcer of left heel and midfoot with fat layer exposed; E11.42 Type 2 diabetes mellitus with diabetic polyneuropathy; Z89.421 Acquired absence of other right toe(s)
CPT/HCPCS: A9270; G0463

== ENCOUNTER 2024-09-23 04:06 | Day surgery (SDC) | payer OTHER | END 2024-09-23 22:00 | disposition home or self-care (01) | LOC: WOUND 04:06 | DX: E11.621 Type 2 diabetes mellitus with foot ulcer (principal); L97.422 Non-pressure chronic ulcer of left heel and midfoot with fat layer exposed; E11.42 Type 2 diabetes mellitus with diabetic polyneuropathy; Z88.6 Allergy status to analgesic agent; Z89.421 Acquired absence of other right toe(s) ==

== ENCOUNTER 2024-10-14 01:19 | Day surgery (SDC) | payer OTHER ==
[2024-10-14] MEDS ORDERED: Lidocaine HCl 4% Cream 5 GM ONE (08:56)
== END 2024-10-14 23:00 | disposition home or self-care (01) ==
LOC: WOUND 01:19
DX: E11.621 Type 2 diabetes mellitus with foot ulcer (principal); L97.422 Non-pressure chronic ulcer of left heel and midfoot with fat layer exposed; E11.42 Type 2 diabetes mellitus with diabetic polyneuropathy; Z89.421 Acquired absence of other right toe(s)
CPT/HCPCS: A9270

== ENCOUNTER 2024-11-04 07:31 | Day surgery (SDC) | payer OTHER ==
[2024-11-04] MEDS ORDERED: Lidocaine HCl 4% Cream 5 GM ONE (08:01)
== END 2024-11-04 23:00 | disposition home or self-care (01) ==
LOC: WOUND 07:31
DX: E11.621 Type 2 diabetes mellitus with foot ulcer (principal); L97.422 Non-pressure chronic ulcer of left heel and midfoot with fat layer exposed; E11.42 Type 2 diabetes mellitus with diabetic polyneuropathy; Z88.6 Allergy status to analgesic agent; Z89.421 Acquired absence of other right toe(s)
CPT/HCPCS: A9270

== ENCOUNTER 2024-11-18 01:07 | Day surgery (SDC) | payer OTHER ==
[2024-11-18] MEDS ORDERED: Lidocaine HCl 4% Cream 5 GM ONE (08:23)
== END 2024-11-18 23:00 | disposition home or self-care (01) ==
LOC: WOUND 01:07
DX: E11.621 Type 2 diabetes mellitus with foot ulcer (principal); L97.422 Non-pressure chronic ulcer of left heel and midfoot with fat layer exposed; E11.42 Type 2 diabetes mellitus with diabetic polyneuropathy; Z89.421 Acquired absence of other right toe(s)
CPT/HCPCS: A9270; G0463

== ENCOUNTER 2024-12-02 02:34 | Day surgery (SDC) | payer OTHER ==
[2024-12-02] MEDS ORDERED: Lidocaine HCl 4% Cream 5 GM ONE (08:17)
== END 2024-12-02 23:00 | disposition home or self-care (01) ==
LOC: WOUND 02:34
DX: E11.621 Type 2 diabetes mellitus with foot ulcer (principal); L97.422 Non-pressure chronic ulcer of left heel and midfoot with fat layer exposed; E11.42 Type 2 diabetes mellitus with diabetic polyneuropathy; Z89.421 Acquired absence of other right toe(s)
CPT/HCPCS: A9270

== ENCOUNTER 2024-12-23 00:32 | Day surgery (SDC) | payer OTHER | END 2024-12-23 23:00 | disposition home or self-care (01) | LOC: WOUND 00:32 | DX: E11.621 Type 2 diabetes mellitus with foot ulcer (principal); L97.522 Non-pressure chronic ulcer of other part of left foot with fat layer exposed; E11.40 Type 2 diabetes mellitus with diabetic neuropathy, unspecified; Z89.421 Acquired absence of other right toe(s) | CPT/HCPCS: G0463 ==

== ENCOUNTER 2025-01-06 00:56 | Day surgery (SDC) | payer OTHER ==
[2025-01-06] MEDS ORDERED: Lidocaine HCl 4% Cream 5 GM ONE (08:36)
== END 2025-01-06 23:00 | disposition home or self-care (01) ==
LOC: WOUND 00:56
DX: E11.621 Type 2 diabetes mellitus with foot ulcer (principal); L97.422 Non-pressure chronic ulcer of left heel and midfoot with fat layer exposed; E11.42 Type 2 diabetes mellitus with diabetic polyneuropathy; Z89.421 Acquired absence of other right toe(s)
CPT/HCPCS: A9270; G0463

== ENCOUNTER 2025-02-03 01:03 | Day surgery (SDC) | payer OTHER | END 2025-02-03 22:59 | disposition home or self-care (01) | LOC: WOUND 01:03 | DX: E11.621 Type 2 diabetes mellitus with foot ulcer (principal); L97.425 Non-pressure chronic ulcer of left heel and midfoot with muscle involvement without evidence of necrosis; E11.42 Type 2 diabetes mellitus with diabetic polyneuropathy; Z89.421 Acquired absence of other right toe(s) ==

== ENCOUNTER 2025-02-17 02:25 | Day surgery (SDC) | payer OTHER | END 2025-02-17 23:31 | disposition home or self-care (01) | LOC: WOUND 02:25 | DX: E11.621 Type 2 diabetes mellitus with foot ulcer (principal); L97.522 Non-pressure chronic ulcer of other part of left foot with fat layer exposed; E11.42 Type 2 diabetes mellitus with diabetic polyneuropathy; E11.52 Type 2 diabetes mellitus with diabetic peripheral angiopathy with gangrene; E11.69 Type 2 diabetes mellitus with other specified complication; M86.9 Osteomyelitis, unspecified; A48.0 Gas gangrene; Z79.4 Long term (current) use of insulin; Z79.899 Other long term (current) drug therapy; Z88.6 Allergy status to analgesic agent; Z89.421 Acquired absence of other right toe(s) | CPT/HCPCS: G0463 ==

== ENCOUNTER 2025-03-03 00:23 | Day surgery (SDC) | payer OTHER | END 2025-03-03 23:42 | disposition home or self-care (01) | LOC: WOUND 00:23 | DX: E11.621 Type 2 diabetes mellitus with foot ulcer (principal); L97.425 Non-pressure chronic ulcer of left heel and midfoot with muscle involvement without evidence of necrosis; E11.42 Type 2 diabetes mellitus with diabetic polyneuropathy; Z89.421 Acquired absence of other right toe(s) ==